=== PATIENT | female | born 1955 | race Caucasian/White ===

== ENCOUNTER 2016-05-04 10:31 | Inpatient (IN) | payer MEDICARE, MEDICAID ==
[2016-05-04] MEDS ORDERED: SODIUM CHLORIDE 0.9% 10 ML FLUSH FLUSH PRN (11:01)
[2016-05-04] MEDS ORDERED: METHYLPREDNISOLONE 125 MG/2 ML VIAL IV ONE (11:01)
[2016-05-04] MEDS ORDERED: Albuterol/Ipratropium Neb 3 ML NEB NEB ONE (11:01)
--- NOTE | 2016-05-04 11:01 | EDPRACDOC ---
<Eve Mast - Last Filed: 05/04/16 11:55> - General Information Information Source: Patient Mode Of Arrival: Car - History of Present Illness Onset: TODAY HPI: PT REPORTS NON-PROD COUGH, WHEEZING, SOBR TODAY, HX OF ASTHMA, CONTINUES TO SMOKE, NO FEVER OR CHEST PAIN, NO N/V/D. Shortness of Breath: Severe Relevant History: Reports: Asthma Cough: Reports: Non-productive Rhinorrhea: Denies: Clear, Bloody, Brown, Green, Purulent, None, O Ear Symptoms: Reports: None SOB Worsens with: Reports: Exertion SOB Improves with: Reports: Nothing Recently treated infections:: Denies: Otitis media, Pneumonia, URI Associated Signs and symptoms: Reports: Cough, Nasal Symptoms. Denies: Earache , Fever, Headache, Sore Throat, Nausea, Vomiting, Diarrhea, Myalgia, Rash, Pain with head movement, AMS <Tino Wilkerson - Last Filed: 05/04/16 12:09> - General Information Chief Complaint: Dyspnea/Resp distress Stated Complaint: DIFFICULTY BREATHING Time Seen by Provider: 05/04/16 10:52 Home Medications: Home Medications Esomeprazole Mag Trihydrate [Nexium] 40 mg PO DAILY 01/23/13 Lisinopril [Prinivil] 40 mg PO DAILY 01/23/13 Promethazine [Phenergan] 25 mg PO Q6H PRN 01/23/13 Amlodipine [Norvasc] 5 mg PO DAILY 05/22/15 Albuterol Sulfate [Proair Hfa] 2 puff INH Q4-6H PRN 11/05/15 L.acidoph & Paracasei,B.lactis [Probiotic] 1 each PO .7DAYS BEFORE SX 11/05/15 Lactulose 10 gm PO DAILY PRN 11/05/15 Methylcellulose [Fiber] 500 mg PO .7 DAYS BEFORE SX 11/05/15 Budesonide/Formoterol Fumarate [Symbicort 80-4.5 Mcg Inhaler] 2 puff INH BID Fluoxetine HCl 20 mg PO DAILY 11/25/15 Oxycodone HCl [Oxycodone Immediate Release] 10 mg PO Q8H PRN 11/25/15 Simvastatin [Zocor] 20 mg PO DAILY 11/25/15 Aspirin (OrangeEnteric Coated) [Ecotrin] 325 mg PO BID #60 tab 11/28/15 Celecoxib [Celebrex] 200 mg PO QDPC #11 capsule 11/28/15 Oxycodone Immediate Release [Oxycodone Immediate Release (OxyIR)] 5 mg PO Q4H PRN #40 tab 11/28/15 Allergies/Adverse Reactions: Allergies Allergy/AdvReac Type Severity Reaction Status Date / Time No Known Allergies Allergy Verified 05/04/16 10:41 ED Past Medical History - History Reviewed Yes Nurses notes reviewed and agree except as marked - Patient Medical History Cardiac History: Reports: Hypertension Respiratory History: Reports: COPD (CHRONIC BRONCHITIS), Chronic Bronchitis GI/ History: Reports: Gastroesophageal Reflux, Diverticulosis Musculoskeletal History: Reports: Arthritis Psychological History: Reports: Depression, Anxiety. Denies: Substance Use Disorder Systemic History: Denies: Cancer Surgical History: Reports: Hysterectomy - Family Medical History Reports: Hypertension (FATHER), Cancer (MOTHER LUNG CA), Cardiac Disorders ( FATHER). Denies: Diabetes, Stroke - Social Medical History Smoking Status: Heavy tobacco smoker (5 or more cigarettes/day or daily pipe/ cigar) Social History: Denies: Substance Use Disorder ETOH: None Substance Abuse: None <Tino Wilkerson - Last Filed: 05/04/16 12:09> EDM Review of Systems - Review of Systems Constitutional: negative: Chills, Fever Eyes: negative: Blurred Vision, Double Vision Ears: negative: Drainage Throat: negative: Pain Nose: Congestion. negative: Discharge Respiratory: Cough, Shortness of Breath, Wheezing Cardiovascular: negative: Chest Pain, Palpitations Gastrointestinal: negative: Diarrhea, Nausea, Pain, Vomiting Genitourinary: negative: Dysuria, Frequency Neurological: negative: Dizziness, Headache, Numbness, Weakness Musculoskeletal: No Symptoms Reported Integumentary: No Symptoms Reported <Tino Wilkerson - Last Filed: 05/04/16 12:09> - Physical Exam Last recorded Vital Signs: Last Vital Signs Temp 99.3 F 05/04/16 10:55 Pulse 92 05/04/16 11:25 Resp 30 H 05/04/16 11:25 BP 136/65 05/04/16 11:25 Pulse Ox 93 05/04/16 11:25 Oxygen Pulse Oxygen Saturation 93 O2 Device Nasal Cannula Oxygen Flow Rate 2 Fraction of Inspired Oxygen ( FIO2) <Eve Mast - Last Filed: 05/04/16 11:55> - Physical Exam Constitutional: Alert (Awake), No apparent distress Oriented to: Time, Person, Place Last recorded Vital Signs: Last Vital Signs Temp 99.3 F 05/04/16 10:40 Pulse 105 05/04/16 10:40 Resp 42 H 05/04/16 10:40 BP 169/91 05/04/16 10:40 Pulse Ox 90 L 05/04/16 10:40 Oxygen Pulse Oxygen Saturation 90 O2 Device Oxygen Flow Rate Fraction of Inspired Oxygen ( FIO2) - HEENT Head: Normal ( normocephalic) Eye Exam: Normal (PERRL, EOMI, Sclera white) Oropharynx: Normal (Pharynx:Moist without exudate,Gums-no swelling) Tympanic Membrane: Normal ENT EAC: Normal TMJ: Normal Nose: No Symptoms Reported (septum midline) Neck: Normal (FROM, trachea at midline) - Respiratory/Cardiovascular Respiratory: Accessory Muscle Use, Wheezes Cardiovascular: Normal (RRR without murmur, gallop or rub) - GI Auscultation: Normal (NABS) Palpation: Normal (Soft,No rebound or guarding, non distended) Tenderness: Non tender Christinason's Sign: Negative - Musculoskeletal Back: Normal (Non-Tender) Extremities: Normal (Normal tone, Pulses 2+ No cyanosis or edema, FROM) - Integumentary Skin: Normal, Warm, Dry Lymphatics: Normal (no adenopathy) - Neurologic Memory Impaired: Normal Motor Function: Normal (Normal tone, Pulses 2+ No cyanosis or edema, FROM) Cranial Nerve: Normal (CN II-X11 intact sensation, strength 5/5) Cerebellar: Normal Mood Description: Normal Perception: Normal <Tino Wilkerson - Last Filed: 05/04/16 12:09> ED SOB MDM - Results Result Diagrams: 05/04/16 11:00 05/04/16 11:00 Results: WBC 12.3 xk/uL (3.8-10.8) H 05/04/16 11:00 RBC 4.37 xM/uL (4.20-5.40) 05/04/16 11:00 Hgb 10.1 g/dL (12.0-16.0) L 05/04/16 11:00 Hct 31.4 % (36-47) L 05/04/16 11:00 MCV 72 fL (81-99) L 05/04/16 11:00 MCH 23.1 pg (27-32) L 05/04/16 11:00 MCHC 32.3 g/dl (33-36) L 05/04/16 11:00 RDW 18.9 % (11.5-14.5) H 05/04/16 11:00 Plt Count 424 xk/uL (130-400) H 05/04/16 11:00 MPV 8.1 fL (7.4-10.4) 05/04/16 11:00 Neut % (Auto) Cancelled 05/04/16 11:00 Lymph % (Auto) Cancelled 05/04/16 11:00 [place] % (Auto) Cancelled 05/04/16 11:00 Eos % (Auto) Cancelled 05/04/16 11:00 Baso % (Auto) Cancelled 05/04/16 11:00 Absolute Neuts (auto) Cancelled 05/04/16 11:00 Absolute Lymphs (auto) Cancelled 05/04/16 11:00 Seg Neuts % (Manual) 84 % (45-76) H 05/04/16 11:00 Band Neutrophils % 1 % (0-5) 05/04/16 11:00 Lymphocytes % (Manual) 15 % (17-44) L 05/04/16 11:00 Absolute Neutrophils 10.46 xk/uL (1.7-8.2) H 05/04/16 11:00 Absolute Lymphocytes 1.85 xk/uL (0.65-4.75) 05/04/16 11:00 Platelet Estimate Norm (NORMAL) 05/04/16 11:00 RBC Morphology 1+ hypo 1+ micro 1+ polychrom 05/04/16 11:00 RBC Morphology 1+ hypo 1+ micro 1+ polychrom 05/04/16 11:00 RBC Morphology 1+ hypo 1+ micro 1+ polychrom 05/04/16 11:00 PT 11.0 SEC (9.2-11.2) 05/04/16 11:00 INR 1.1 05/04/16 11:00 APTT 25.6 SEC (22-35) 05/04/16 11:00 Puncture Site Left radial 05/04/16 11:00 pH 7.480 pH UNITS (7.35-7.45) H 05/04/16 11:00 pCO2 36.0 mmHg (35-45) 05/04/16 11:00 pO2 57.0 mmHg (80-100) L 05/04/16 11:00 HCO3 26.8 MMOL/L (22-26) H 05/04/16 11:00 Total CO2 27.9 MMOL/L (23-27) H 05/04/16 11:00 Base Excess 3.4 (+/- 2) H 05/04/16 11:00 FiO2 % 21% 05/04/16 11:00 Specimen Drawn By Stana 05/04/16 11:00 Sodium 139 mEq/L (137-146) 05/04/16 11:00 Potassium 3.2 mEq/L (3.5-5.1) L 05/04/16 11:00 Chloride 101 mEq/L (98-107) 05/04/16 11:00 Carbon Dioxide 26 mMOL/L (22-33) 05/04/16 11:00 Anion Gap 15 mEq/L (8-16) 05/04/16 11:00 BUN 8 MG/DL (7-17) 05/04/16 11:00 Creatinine 0.70 MG/DL (0.52-1.04) 05/04/16 11:00 Estimated GFR (MDRD) > 60 mL/min (>=60) 05/04/16 11:00 Glucose 120 MG/DL (70-99) H 05/04/16 11:00 Calculated Osmolality 267 MOs/Kg (270-290) L 05/04/16 11:00 Calcium 8.1 MG/DL (8.4-10.2) L 05/04/16 11:00 Corrected Calcium 8.3 MG/DL (8.4-10.2) L 05/04/16 11:00 Total Bilirubin 0.5 MG/DL (0.2-1.3) 05/04/16 11:00 AST 25 IU/L (14-36) 05/04/16 11:00 ALT 25 IU/L (9-52) 05/04/16 11:00 Alkaline Phosphatase 124 IU/L (55-165) 05/04/16 11:00 Troponin I < 0.01 ng/mL (<.04) 05/04/16 11:00 Wha-C-Vqzlsbxbgne Pept 911 pg/mL (0-900) H 05/04/16 11:00 Total Protein 7.6 G/DL (6.3-8.2) 05/04/16 11:00 Albumin 3.8 G/DL (3.5-5.0) 05/04/16 11:00 Lab Results 05/04/16 05/04/16 05/04/16 11:00 11:00 11:00 WBC 12.3 H RBC 4.37 Hgb 10.1 L Hct 31.4 L MCV 72 L MCH 23.1 L MCHC 32.3 L RDW 18.9 H Plt Count 424 H MPV 8.1 Neut % (Auto) Cancelled Lymph % (Auto) Cancelled [place] % (Auto) Cancelled Eos % (Auto) Cancelled Baso % (Auto) Cancelled Absolute Neuts (auto) Cancelled Absolute Lymphs (auto) Cancelled Seg Neuts % (Manual) 84 H Band Neutrophils % 1 Lymphocytes % (Manual) 15 L Absolute Neutrophils 10.46 H Absolute Lymphocytes 1.85 Platelet Estimate Norm RBC Morphology 1+ polychrom PT 11.0 INR 1.1 APTT 25.6 Puncture Site pH pCO2 pO2 HCO3 Total CO2 Base Excess FiO2 % Specimen Drawn By Sodium 139 Potassium 3.2 L Chloride 101 Carbon Dioxide 26 Anion Gap 15 BUN 8 Creatinine 0.70 Estimated GFR (MDRD) > 60 Glucose 120 H Calculated Osmolality 267 L Calcium 8.1 L Corrected Calcium 8.3 L Total Bilirubin 0.5 AST 25 ALT 25 Alkaline Phosphatase 124 Troponin I < 0.01 Cck-O-Frdimoohsgu Pept 911 H Total Protein 7.6 Albumin 3.8 05/04/16 11:00 WBC RBC Hgb Hct MCV MCH MCHC RDW Plt Count MPV Neut % (Auto) Lymph % (Auto) [place] % (Auto) Eos % (Auto) Baso % (Auto) Absolute Neuts (auto) Absolute Lymphs (auto) Seg Neuts % (Manual) Band Neutrophils % Lymphocytes % (Manual) Absolute Neutrophils Absolute Lymphocytes Platelet Estimate RBC Morphology PT INR APTT Puncture Site Left radial pH 7.480 H pCO2 36.0 pO2 57.0 L HCO3 26.8 H Total CO2 27.9 H Base Excess 3.4 H FiO2 % 21% Specimen Drawn By Stana Sodium Potassium Chloride Carbon Dioxide Anion Gap BUN Creatinine Estimated GFR (MDRD) Glucose Calculated Osmolality Calcium Corrected Calcium Total Bilirubin AST ALT Alkaline Phosphatase Troponin I Mwr-Z-Hjbcemtidno Pept Total Protein Albumin <Eve Mast - Last Filed: 05/04/16 11:55> - Differential Diagnosis Differential Diagnosis: Heart Failure, Pnuemonia, Respiratory Failure - Re-evaluation Re-evaluation 1 Re-evaluation Time: 11:50 (BREATHING SOME BETTER, CONT TO WHEEZE, DISCUSSED WITH DR MAST, SHE WILL DISCUSS WITH HOSPTIALIST) - Results Result Diagrams: 05/04/16 11:00 05/04/16 11:00 Results: 05/04/16 11:49 Laboratory Results - last 24 hr 05/04/16 05/04/16 05/04/16 11:00 11:00 11:00 WBC 12.3 H RBC 4.37 Hgb 10.1 L Hct 31.4 L MCV 72 L MCH 23.1 L MCHC 32.3 L RDW 18.9 H Plt Count 424 H MPV 8.1 Neut % (Auto) Cancelled Lymph % (Auto) Cancelled [place] % (Auto) Cancelled Eos % (Auto) Cancelled Baso % (Auto) Cancelled Absolute Neuts (auto) Cancelled Absolute Lymphs (auto) Cancelled Seg Neuts % (Manual) 84 H Band Neutrophils % 1 Lymphocytes % (Manual) 15 L Absolute Neutrophils 10.46 H Absolute Lymphocytes 1.85 Platelet Estimate Norm RBC Morphology 1+ polychrom PT INR APTT Puncture Site Left radial pH 7.480 H pCO2 36.0 pO2 57.0 L HCO3 26.8 H Total CO2 27.9 H Base Excess 3.4 H FiO2 % 21% Specimen Drawn By Stana Sodium 139 Potassium 3.2 L Chloride 101 Carbon Dioxide 26 Anion Gap 15 BUN 8 Creatinine 0.70 Estimated GFR (MDRD) > 60 Glucose 120 H Calculated Osmolality 267 L Calcium 8.1 L Corrected Calcium 8.3 L Total Bilirubin 0.5 AST 25 ALT 25 Alkaline Phosphatase 124 Troponin I < 0.01 Aee-B-Gmckbmhcvkp Pept 911 H Total Protein 7.6 Albumin 3.8 05/04/16 11:00 WBC RBC Hgb Hct MCV MCH MCHC RDW Plt Count MPV Neut % (Auto) Lymph % (Auto) [place] % (Auto) Eos % (Auto) Baso % (Auto) Absolute Neuts (auto) Absolute Lymphs (auto) Seg Neuts % (Manual) Band Neutrophils % Lymphocytes % (Manual) Absolute Neutrophils Absolute Lymphocytes Platelet Estimate RBC Morphology PT 11.0 INR 1.1 APTT 25.6 Puncture Site pH pCO2 pO2 HCO3 Total CO2 Base Excess FiO2 % Specimen Drawn By Sodium Potassium Chloride Carbon Dioxide Anion Gap BUN Creatinine Estimated GFR (MDRD) Glucose Calculated Osmolality Calcium Corrected Calcium Total Bilirubin AST ALT Alkaline Phosphatase Troponin I Irz-U-Jheiiuevxkm Pept Total Protein Albumin - EKG EKG #1 EKG Time: 11:13 -: Yes EKG interpreted by me Rate: bpm: 100 Saxe: Normal Rhythm: NSR Block: None Hypertrophy: None ST: Nonsp Comparison: 10/30/15 (NO CHANGE) - Diagnostic Imaging CXR Image interpreted by: Radiologist Diagnostic Imaging Comments: PORTABLE CHEST 1 VIEW COMPARISON: Prior chest x-ray 02/17/2015 FINDINGS: Stable cardiac and mediastinal contours. Atherosclerotic calcifications again noted in the transverse aorta. Bronchitic change and interstitial prominence similar compared to prior. No overt pulmonary edema, new focal consolidation, pleural effusion or pneumothorax. Perhaps slightly increased left basilar opacity which is nonspecific. No acute osseous abnormality. IMPRESSION: 1. Left retrocardiac opacity may reflect atelectasis or infiltrate. Atelectasis is favored. 2. Otherwise, stable chest x-ray without evidence of acute cardiopulmonary process. 3. Aortic atherosclerosis. <Tino Wilkerson - Last Filed: 05/04/16 12:09> - Departure Yes I personally saw and evaluated the patient. Disposition: Admit IP To This Hospital Education/Counseling Given To: Patient Education/Counseling Given Regarding: Diagnosis, Treatment Decision to Admit Time: 11:55 Decision to admit date: 05/04/16 Decision to admit: from ED - Physician Consulted Hospitalist Provider Called: Anderson Byrne <Eve Mast - Last Filed: 05/04/16 11:55> <Tino Wilkerson - Last Filed: 05/04/16 12:09> - Departure Condition: Fair Final Diagnosis: LLL pneumonia, Acute respiratory failure with hypoxia, Tobacco abuse Referrals: Marti Rojo PA [Primary Care Provider] - One Week
[2016-05-04 11:09] LABS: ALLEN'S TEST PASS; BEb 3.4 (+/- 2); TCO2 27.9 MMOL/L (23-27)
[2016-05-04 11:12] LABS: MPV 8.1 fL (7.4-10.4)
[2016-05-04 11:14] LABS: ABG Draw Site Left Radial
[2016-05-04 11:22] LABS: BLOOD UREA NITROGEN 8 MG/DL (7-17); CALC CORRECTED 8.3 MG/DL (8.4-10.2); CALCIUM 8.1 MG/DL (8.4-10.2); CALCULATED OSMOLALITY 267 MOs/Kg (270-290); CHLORIDE 101 mEq/L (98-107); GLUCOSE 120 MG/DL (70-99); SODIUM LEVEL 139 mEq/L (137-146); TOTAL PROTEIN 7.6 G/DL (6.3-8.2)
[2016-05-04 11:29] LABS: PARTIAL THROMB. TIME 25.6 SEC (22-35); PT-INR 1.1
[2016-05-04 11:41] LABS: SEG NEUTROPHIL 84 % (45-76)
--- NOTE | 2016-05-04 11:48 | DIRPT ---
CLINICAL DATA: 61-year-old female with shortness of breath, cough and wheezing EXAM: PORTABLE CHEST 1 VIEW COMPARISON: Prior chest x-ray 02/17/2015 FINDINGS: Stable cardiac and mediastinal contours. Atherosclerotic calcifications again noted in the transverse aorta. Bronchitic change and interstitial prominence similar compared to prior. No overt pulmonary edema, new focal consolidation, pleural effusion or pneumothorax. Perhaps slightly increased left basilar opacity which is nonspecific. No acute osseous abnormality. IMPRESSION: 1. Left retrocardiac opacity may reflect atelectasis or infiltrate. Atelectasis is favored. 2. Otherwise, stable chest x-ray without evidence of acute cardiopulmonary process. 3. Aortic atherosclerosis. Electronically Signed By: Christopher Adair M.D. On: 05/04/2016 11:45
[2016-05-04] MEDS ORDERED: Levofloxacin 750 mg/150 ml D5W 750 MG/150 ML RTU IV ONE (12:00)
[2016-05-04] MEDS ORDERED: GLUCAGON 1 MG VIAL SQ PRN (12:50)
[2016-05-04] MEDS ORDERED: GLUCOSE (ORAL GEL) 15 GM TUBE PO PRN (12:50)
[2016-05-04] MEDS ORDERED: SODIUM CHLORIDE 0.9% 3 ML FLUSH FLUSH PRN (12:50)
[2016-05-04] MEDS ORDERED: Aluminum;Magnesium;Simethicone 30 ML UDC PO PRN (12:50)
[2016-05-04] MEDS ORDERED: DEXTROSE 25 GM/50 ML PFS IV PRN (12:50)
[2016-05-04] MEDS ORDERED: MAGNESIUM HYDROXIDE 30 ML BOTTLE PO PRN (12:50)
[2016-05-04] MEDS ORDERED: ONDANSETRON HCL 4 MG/2 ML VIAL IV PRN (12:50)
[2016-05-04] MEDS ORDERED: ACETAMINOPHEN 325 MG/TAB TABLET PO ONE (12:52)
[2016-05-04] MEDS ORDERED: TUSSIONEX 5 ML ORAL SYRINGE PO ONE (12:58)
--- NOTE | 2016-05-04 13:00 | HISTPHYS ---
- Chief Complaint 61-year-old female presents emergency department with complaints of shortness of breath and cough present for several days. - History of Present Illness 61-year-old female history of multiple orthopedic procedures presents the emergency department today hypoxemic short of breath and with cough. She is unable to provide much history as she has a dysarthria. Evaluation in the Emergency Department revealed acute respiratory failure with hypoxemia, left lower lobe pneumonia, wheezing, a microcytic anemia, and tobacco abuse. Patient is unable to provide any useful history and her aide states that she is there to help her but is unable to provide any is additional history. Given findings in the emergency department patient was referred to me for further evaluation and management. Patient does complain of whitish sputum production. - Medical History Cardiac History: Reports: Hypertension Respiratory History: Reports: COPD (CHRONIC BRONCHITIS), Chronic Bronchitis GI/ History: Reports: Gastroesophageal Reflux, Diverticulosis Musculoskeletal History: Reports: Arthritis Systemic History: Denies: Cancer Psychological History: Reports: Depression, Anxiety. Denies: Substance Use Disorder - Surgical History Reports: Hysterectomy - Medictions/Allergies Allergies No Known Allergies Allergy (Verified 05/04/16 10:41) ENTERED FROM MED ORDERS Current Medication List: Reviewed Home Medications Esomeprazole Mag Trihydrate [Nexium] 40 mg PO DAILY 01/23/13 Amlodipine [Norvasc] 5 mg PO DAILY 05/22/15 Albuterol Sulfate [Proair Hfa] 2 puff INH Q4-6H PRN 11/05/15 Budesonide/Formoterol Fumarate [Symbicort 80-4.5 Mcg Inhaler] 2 puff INH BID Fluoxetine HCl 20 mg PO DAILY 11/25/15 Simvastatin [Zocor] 20 mg PO DAILY 11/25/15 Hydrocodone Bit/Acetaminophen [[place] 5-325 Tablet] 1 tab PO BID 05/04/16 Hydroxyzine Pamoate [Vistaril] 25 mg PO QID 05/04/16 Meloxicam [Mobic] 7.5 mg PO DAILY 05/04/16 Metformin HCl 500 mg PO DAILY 05/04/16 Trazodone HCl [Desyrel] 50 mg PO QHS 05/04/16 Zolpidem Tartrate 5 mg PO HS PRN 05/04/16 - Family History Reports: Hypertension (FATHER), Cancer (MOTHER LUNG CA), Cardiac Disorders ( FATHER). Denies: Diabetes, Stroke - Social History Travel Outside of [place] in the Last 3 Months?: No Lives: Alone Smoking Status: Heavy tobacco smoker (5 or more cigarettes/day or daily pipe/ cigar) Social History: Denies: Alcohol Use, Substance Use Disorder - Review of Systems Yes Review of systems cannot be obtained due to the patient's medical condition - Physical Exam Vital Signs: Initial Vitals Temperature 99.3 F 05/04/16 10:40 Pulse Rate 105 05/04/16 10:40 Respiratory Rate 42 H 05/04/16 10:40 Blood Pressure 169/91 05/04/16 10:40 Pulse Oxygen Saturation 90 L 05/04/16 10:40 Constitutional: Alert, Confused, Well nourished Oriented to: Time, Person, Place - HEENT Head: Normal (normocephalic, atraumatic.), Other (No cervical lymphadenopathy. No supraclavicular lymphadenopathy. Neck: No palpable mass, supple , trachea midline.) Eye: Normal (pupils equal, reactive to light, and round; EOMI, Sclera white) Oropharynx: Normal (Pharynx: Moist without exudate,Gums-no swelling, No oropharyngeal lesions or erythema, Mucous membranes are dry.) Nose: No Symptoms Reported (septum midline, Nares patent, without discharge or bleeding.) Respiratory: Normal - CTA (Clear to auscultation bilaterally. No wheezing, rales , rhonchi. Chest wall movements are symmetric. No use of accessory muscles to breathe.) Cardiovascular: Normal (RRR , Normal S1, S2. No murmurs, rubs, or gallops. PMI non-displaced. Carotids: no carotid bruits. No bradycardia or tachycardia. DP pulses 2+ bilaterally.) - GI Auscultation: Normal (normal active sounds) Palpation: Normal (Soft,non distended,nontender. No hepatosplenomegaly.) Tenderness: Non tender (No rebound or guarding) Christianson's Sign: Negative - Musculoskeletal Back: Normal (Non-Tender) Extremities: Normal (Normal tone, DP pulses 2+ bilaterally, No cyanosis or edema bilaterally, FROM bilaterally.) - Integumentary Skin: Normal (Clean, dry, and intact. No rashes. No lesions.) Lymphatics: Normal (No cervical lymphadenopathy. No supraclavicular lymphadenopathy.) - Neurologic Motor Function: Normal (Motor 5/5 throughout.Normal tone, Pulses 2+ No cyanosis or edema, FROM) Cranial Nerve: Normal (CN II-XII intact sensation, strength 5/5) Cerebellar: Normal (Babinski: toes downgoing bilaterally. Intact Finger to nose. Sensory grossly intact to light touch. Intact rapid alternating movements bilaterally. No pronator drift.) Mood Description: Normal (Fully oriented. Normal and appropriate affect.) - Focused CV Perfusion Exam Vital Signs: Last Vital Signs Temp 99.3 F 05/04/16 10:55 Pulse 95 05/04/16 11:54 Resp 30 H 05/04/16 11:54 BP 145/107 H 05/04/16 11:54 Pulse Ox 93 05/04/16 11:54 - Lab Results Laboratory Results - last 24 hr 05/04/16 05/04/16 05/04/16 11:00 11:00 11:00 WBC 12.3 H RBC 4.37 Hgb 10.1 L Hct 31.4 L MCV 72 L MCH 23.1 L MCHC 32.3 L RDW 18.9 H Plt Count 424 H MPV 8.1 Neut % (Auto) Cancelled Lymph % (Auto) Cancelled [place] % (Auto) Cancelled Eos % (Auto) Cancelled Baso % (Auto) Cancelled Absolute Neuts (auto) Cancelled Absolute Lymphs (auto) Cancelled Seg Neuts % (Manual) 84 H Band Neutrophils % 1 Lymphocytes % (Manual) 15 L Absolute Neutrophils 10.46 H Absolute Lymphocytes 1.85 Platelet Estimate Norm RBC Morphology 1+ polychrom PT INR APTT Puncture Site Left radial pH 7.480 H pCO2 36.0 pO2 57.0 L HCO3 26.8 H Total CO2 27.9 H Base Excess 3.4 H FiO2 % 21% Specimen Drawn By Stana Sodium 139 Potassium 3.2 L Chloride 101 Carbon Dioxide 26 Anion Gap 15 BUN 8 Creatinine 0.70 Estimated GFR (MDRD) > 60 Glucose 120 H Calculated Osmolality 267 L Lactic Acid Calcium 8.1 L Corrected Calcium 8.3 L Total Bilirubin 0.5 AST 25 ALT 25 Alkaline Phosphatase 124 Troponin I < 0.01 Cbs-G-Rtfhzkudxnu Pept 911 H Total Protein 7.6 Albumin 3.8 05/04/16 05/04/16 11:00 11:00 WBC RBC Hgb Hct MCV MCH MCHC RDW Plt Count MPV Neut % (Auto) Lymph % (Auto) [place] % (Auto) Eos % (Auto) Baso % (Auto) Absolute Neuts (auto) Absolute Lymphs (auto) Seg Neuts % (Manual) Band Neutrophils % Lymphocytes % (Manual) Absolute Neutrophils Absolute Lymphocytes Platelet Estimate RBC Morphology PT 11.0 INR 1.1 APTT 25.6 Puncture Site pH pCO2 pO2 HCO3 Total CO2 Base Excess FiO2 % Specimen Drawn By Sodium Potassium Chloride Carbon Dioxide Anion Gap BUN Creatinine Estimated GFR (MDRD) Glucose Calculated Osmolality Lactic Acid 1.5 Calcium Corrected Calcium Total Bilirubin AST ALT Alkaline Phosphatase Troponin I Mgj-F-Samgoezrqkz Pept Total Protein Albumin - Diagnostic Findings PORTABLE CHEST 1 VIEW COMPARISON: Prior chest x-ray 02/17/2015 FINDINGS: Stable cardiac and mediastinal contours. Atherosclerotic calcifications again noted in the transverse aorta. Bronchitic change and interstitial prominence similar compared to prior. No overt pulmonary edema, new focal consolidation, pleural effusion or pneumothorax. Perhaps slightly increased left basilar opacity which is nonspecific. No acute osseous abnormality. IMPRESSION: 1. Left retrocardiac opacity may reflect atelectasis or infiltrate. Atelectasis is favored. 2. Otherwise, stable chest x-ray without evidence of acute cardiopulmonary process. 3. Aortic atherosclerosis. Electronically Signed By: Christopher Adair M.D. On: 05/04/2016 11:45 - Assessment (1) Acute respiratory failure with hypoxia J96.01 - ACUTE RESPIRATORY FAILURE WITH HYPOXIA Acute Present on Admission: Yes Continue supplemental oxygen wean as tolerated. (2) Acute exacerbation of chronic obstructive pulmonary disease (COPD) J44.1 - CHRONIC OBSTRUCTIVE PULMONARY DISEASE W (ACUTE) EXACERBATION Acute Present on Admission: Yes Patient will require steroids nebs and continued oxygen treatment. (3) LLL pneumonia J18.1 - LOBAR PNEUMONIA, UNSPECIFIED ORGANISM Acute Present on Admission: Yes Qualifiers: Pneumonia type: due to unspecified organism Qualified Code(s): J18.1 - Lobar pneumonia, unspecified organism Continue IV antibiotics with Rocephin and azithromycin. (4) Hypoxemia R09.02 - HYPOXEMIA Acute (5) Hypokalemia E87.6 - HYPOKALEMIA Acute Present on Admission: Yes Replete as tolerated. (6) Microcytic anemia D50.9 - IRON DEFICIENCY ANEMIA, UNSPECIFIED Acute Present on Admission: Yes Check iron studies and stool Hemoccult. (7) Tobacco abuse Z72.0 - TOBACCO USE Acute Present on Admission: Yes Patient continues to be an avid smoker will provide nicotine patch. (8) Hypertension I10 - ESSENTIAL (PRIMARY) HYPERTENSION Acute Qualifiers: Hypertension type: essential hypertension Qualified Code(s): I10 - Essential (primary) hypertension Continue home medications. - Plan Admit IV antibiotics, IV steroids oxygen supplementation. Case Care Discussed with: Patient Total Time: 55 minutes. Critical Care: No [place] Time (>50% in counseling/coordination): No
[2016-05-04] MEDS: BuPROPion 150 MG SR TAB PO SCH ×2 (14:23→21:36)
[2016-05-04] MEDS: NICOTINE 21 MG PATCH TOP SCH (14:30)
[2016-05-04] MEDS: NS/KCl 20 mEq 1,000 ML IV SCH (14:30)
[2016-05-04] MEDS ORDERED: NS 250 ML IV ONE (14:32)
[2016-05-04] MEDS: AZITHROMYCIN 500 MG in D5W 250 ML IV SCH (14:33)
[2016-05-04] MEDS ORDERED: Vaccine Screening Complete SCH (15:00)
[2016-05-04] MEDS: Albuterol/Ipratropium Neb 3 ML NEB NEB SCH ×2 (15:22→20:12)
[2016-05-04] MEDS: ALBUTEROL 0.083% 3 ML NEB NEB SCH ×2 (15:34→20:13)
[2016-05-04] MEDS: HydrOXYzine PAMOATE 25 MG/CAP CAP PO SCH ×3 (16:11→21:35)
[2016-05-04] MEDS: CEFTRIAXONE 1 GM in D5W 100 ML IV SCH (16:14)
[2016-05-04] MEDS: SODIUM CHLORIDE 0.9% 3 ML FLUSH FLUSH SCH (16:14)
[2016-05-04] MEDS: REGULAR INSULIN 100 UNITS/ML - 3 ML VIAL SQ SCH ×2 (17:57→21:37)
[2016-05-04] MEDS: ENOXAPARIN 40 MG/0.4 ML PFS SQ SCH (17:58)
[2016-05-04] MEDS: METHYLPREDNISOLONE 125 MG/2 ML VIAL IV SCH ×2 (17:58→23:03)
[2016-05-04] MEDS: BUDESONIDE 0.5 MG NEB NEB SCH (20:13)
[2016-05-04] MEDS ORDERED: Non-Formulary Medication ITEM (Budesonide/Formoterol Fumarate [Symbicort 80-4.5 Mcg Inha INH SCH (21:00)
[2016-05-04] MEDS: BENZONATATE 100 MG PERLES PO PRN (21:34)
[2016-05-04] MEDS: HYDROCODONE 5 MG/ACETAMIN 325 MG TAB PO SCH ×2 (21:36→23:01)
[2016-05-04] MEDS ORDERED: HYDROCODONE 10 MG/ACETAMIN 325 MG TAB PO ONE (22:00)
[2016-05-04] MEDS: ALBUTEROL 0.083% 3 ML NEB NEB PRN (22:33)
[2016-05-05] MEDS: Albuterol/Ipratropium Neb 3 ML NEB NEB SCH ×4 (01:58→19:31)
[2016-05-05] MEDS: NS/KCl 20 mEq 1,000 ML IV SCH ×3 (02:56→12:43)
[2016-05-05 04:28] LABS: ALLEN'S TEST PASS; BEb 0.7 (+/- 2); TCO2 26.6 MMOL/L (23-27)
[2016-05-05 04:29] LABS: ABG Draw Site Right Radial; ABG Draw Tech BKL
[2016-05-05] MEDS ORDERED: HYDROCODONE 5 MG/ACETAMIN 325 MG TAB PO SCH (06:00)
[2016-05-05] MEDS: SODIUM CHLORIDE 0.9% 3 ML FLUSH FLUSH SCH ×2 (06:07→17:48)
[2016-05-05] MEDS: MetFORMIN 500 MG IMMED RELEASE TAB PO SCH (06:22)
[2016-05-05] MEDS: REGULAR INSULIN 100 UNITS/ML - 3 ML VIAL SQ SCH ×4 (06:22→20:07)
[2016-05-05] MEDS: PANTOPRAZOLE 40 MG TAB PO SCH (06:22)
[2016-05-05] MEDS: METHYLPREDNISOLONE 125 MG/2 ML VIAL IV SCH ×4 (06:22→23:51)
[2016-05-05] MEDS: ALBUTEROL 0.083% 3 ML NEB NEB PRN ×2 (06:25→23:06)
[2016-05-05 07:39] LABS: MPV 8.5 fL (7.4-10.4)
[2016-05-05] MEDS: BUDESONIDE 0.5 MG NEB NEB SCH ×2 (07:45→19:36)
[2016-05-05 07:58] LABS: BLOOD UREA NITROGEN 10 MG/DL (7-17); CALC CORRECTED 9.1 MG/DL (8.4-10.2); CALCIUM 8.9 MG/DL (8.4-10.2); CALCULATED OSMOLALITY 270 MOs/Kg (270-290); CHLORIDE 104 mEq/L (98-107); GLUCOSE 134 MG/DL (70-99); SODIUM LEVEL 140 mEq/L (137-146); TOTAL PROTEIN 7.3 G/DL (6.3-8.2)
[2016-05-05] MEDS: BENZONATATE 100 MG PERLES PO PRN (07:59)
[2016-05-05] MEDS: HydrOXYzine PAMOATE 25 MG/CAP CAP PO SCH ×4 (07:59→20:07)
[2016-05-05] MEDS: SIMVASTATIN 20 MG TAB PO SCH (07:59)
[2016-05-05] MEDS: FLUOXETINE 20 MG CAP PO SCH (08:00)
[2016-05-05] MEDS: HYDROCODONE 5 MG/ACETAMIN 325 MG TAB PO SCH (08:00)
[2016-05-05] MEDS: MELOXICAM 7.5 MG TAB PO SCH (08:00)
[2016-05-05] MEDS: AMLODIPINE 5 MG TAB PO SCH (08:00)
[2016-05-05 08:39] LABS: SEG NEUTROPHIL 89 % (45-76)
[2016-05-05 08:52] LABS: IRON(SERUM) < 10.0 ug/dL (37-170)
[2016-05-05] MEDS ORDERED: Non-Formulary Medication ITEM (Esomeprazole Mag Trihydrate [Nexium] 40 MG) PO SCH (09:00)
[2016-05-05] MEDS: BuPROPion 150 MG SR TAB PO SCH (09:08)
--- NOTE | 2016-05-05 10:29 | GENMEDPROG ---
Chief Complaint: Patient still wheezing does not feel much better at all. Subjective Note: 61-year-old female admitted to our facility yesterday with hypoxemia and a bacterial pneumonia. She continues to have significant wheezing despite steroid therapy. She has smoked about a pack a cigarettes daily up until the day of admission Notes Reviewed: Yes Events from last night noted and discussed with Clinical Staff Current Medication List: Reviewed Currently: Reports: Cough, Wheezing, SOB, Tobacco Use/Hx. Denies: Nausea and Vomiting, Abdominal Pain DVT Prophylaxis: Yes - Physical Examination Vital Signs and I&O: Last Vital Signs Temp 98 F 05/05/16 10:05 Pulse 100 05/05/16 10:05 Resp 18 05/05/16 10:05 BP 128/82 05/05/16 10:05 Pulse Ox 92 05/05/16 10:05 Oxygen Pulse Oxygen Saturation 92 O2 Device Nasal Cannula Oxygen Flow Rate 2 Fraction of Inspired Oxygen ( FIO2) Intake & Output 05/02/16 05/03/16 05/04/16 05/05/16 23:59 23:59 23:59 23:59 Intake Total 661 1569 Output Total 550 150 Balance 111 1419 Patient's weight 85.389 kg General: Alert, Oriented x3, No acute distress, Well appearing, Well nourished HEENT: Normal (Normocephalic, atraumatic;EOMI.Sclera white, Nares patent, without discharge or bleeding. No oropharyngeal lesions or erythema. Mucous membranes are dry.) Lymphatics: Normal (No cervical lymphadenopathy. No supraclavicular lymphadenopathy.) Respiratory: Diminished, Rhonchi, Wheezes Cardiovascular: Regular rate and rhythm (No bradycardia or tachycardia), Normal S1, No Gallops,Rubs/Murmurs, Normal S2, Good Pedal Pulses (DP pulses 2+ bilaterally) GI: Normal bowel sounds (normal active sounds), Soft (non-distended), Non tender , No hepatospenomegaly, No masses Extremities/Musculoskeletal: Normal pulses (DP pulses 2+ bilaterally) Skin: Warm,Dry and Intact, No rashes, No significant lesion Neurological: Strength at 5/5 X4 ext (Motor 5/5 throughout.), Normal tone, Cranial nerves 3-12 NL ( 2-12 grossly intact.) Lab/DI/Studies Reviewed: Laboratory Results - last 24 hr 05/04/16 05/04/1616 11:00 11:00 11:00 WBC 12.3 H RBC 4.37 Hgb 10.1 L Hct 31.4 L MCV 72 L MCH 23.1 L MCHC 32.3 L RDW 18.9 H Plt Count 424 H MPV 8.1 Neut % (Auto) Cancelled Lymph % (Auto) Cancelled [place] % (Auto) Cancelled Eos % (Auto) Cancelled Baso % (Auto) Cancelled Absolute Neuts (auto) Cancelled Absolute Lymphs (auto) Cancelled Seg Neuts % (Manual) 84 H Band Neutrophils % 1 Lymphocytes % (Manual) 15 L Monocytes % (Manual) Absolute Neutrophils 10.46 H Absolute Lymphocytes 1.85 Vacuolated Neuts Platelet Estimate Norm RBC Morphology 1+ polychrom PT INR APTT Puncture Site Left radial pH 7.480 H pCO2 36.0 pO2 57.0 L HCO3 26.8 H Total CO2 27.9 H Base Excess 3.4 H FiO2 % 21% Specimen Drawn By Stana Sodium 139 Potassium 3.2 L Chloride 101 Carbon Dioxide 26 Anion Gap 15 BUN 8 Creatinine 0.70 Estimated GFR (MDRD) > 60 Glucose 120 H POC Capillary Glucose Hemoglobin A1c Calculated Osmolality 267 L Lactic Acid Calcium 8.1 L Corrected Calcium 8.3 L Iron TIBC % Saturation Ferritin Total Bilirubin 0.5 AST 25 ALT 25 Alkaline Phosphatase 124 Troponin I < 0.01 Lll-V-Mgembctraat Pept 911 H Total Protein 7.6 Albumin 3.8 TSH 05/04/16 05/04/16 05/04/16 11:00 11:00 11:00 WBC RBC Hgb Hct MCV MCH MCHC RDW Plt Count MPV Neut % (Auto) Lymph % (Auto) [place] % (Auto) Eos % (Auto) Baso % (Auto) Absolute Neuts (auto) Absolute Lymphs (auto) Seg Neuts % (Manual) Band Neutrophils % Lymphocytes % (Manual) Monocytes % (Manual) Absolute Neutrophils Absolute Lymphocytes Vacuolated Neuts Platelet Estimate RBC Morphology PT 11.0 INR 1.1 APTT 25.6 Puncture Site pH pCO2 pO2 HCO3 Total CO2 Base Excess FiO2 % Specimen Drawn By Sodium Potassium Chloride Carbon Dioxide Anion Gap BUN Creatinine Estimated GFR (MDRD) Glucose POC Capillary Glucose Hemoglobin A1c 5.8 H Calculated Osmolality Lactic Acid 1.5 Calcium Corrected Calcium Iron TIBC % Saturation Ferritin Total Bilirubin AST ALT Alkaline Phosphatase Troponin I Wor-L-Qmoswzijhpn Pept Total Protein Albumin TSH 05/04/16 05/04/16 05/04/16 11:00 14:06 16:35 WBC RBC Hgb Hct MCV MCH MCHC RDW Plt Count MPV Neut % (Auto) Lymph % (Auto) [place] % (Auto) Eos % (Auto) Baso % (Auto) Absolute Neuts (auto) Absolute Lymphs (auto) Seg Neuts % (Manual) Band Neutrophils % Lymphocytes % (Manual) Monocytes % (Manual) Absolute Neutrophils Absolute Lymphocytes Vacuolated Neuts Platelet Estimate RBC Morphology PT INR APTT Puncture Site pH pCO2 pO2 HCO3 Total CO2 Base Excess FiO2 % Specimen Drawn By Sodium Potassium Chloride Carbon Dioxide Anion Gap BUN Creatinine Estimated GFR (MDRD) Glucose POC Capillary Glucose Hemoglobin A1c Calculated Osmolality Lactic Acid Calcium Corrected Calcium Iron TIBC % Saturation Ferritin Total Bilirubin AST ALT Alkaline Phosphatase Troponin I < 0.01 < 0.01 Zue-Y-Luouuvhbgnn Pept Total Protein Albumin TSH 0.48 L 05/04/16 05/04/16 05/05/16 17:56 20:04 04:25 WBC RBC Hgb Hct MCV MCH MCHC RDW Plt Count MPV Neut % (Auto) Lymph % (Auto) [place] % (Auto) Eos % (Auto) Baso % (Auto) Absolute Neuts (auto) Absolute Lymphs (auto) Seg Neuts % (Manual) Band Neutrophils % Lymphocytes % (Manual) Monocytes % (Manual) Absolute Neutrophils Absolute Lymphocytes Vacuolated Neuts Platelet Estimate RBC Morphology PT INR APTT Puncture Site Right radial pH 7.410 pCO2 40.0 pO2 90.0 HCO3 25.4 Total CO2 26.6 Base Excess 0.7 FiO2 % 2 lpm Specimen Drawn By Bkl Sodium Potassium Chloride Carbon Dioxide Anion Gap BUN Creatinine Estimated GFR (MDRD) Glucose POC Capillary Glucose 137 H 167 H Hemoglobin A1c Calculated Osmolality Lactic Acid Calcium Corrected Calcium Iron TIBC % Saturation Ferritin Total Bilirubin AST ALT Alkaline Phosphatase Troponin I Vqe-V-Hwwmxjphtge Pept Total Protein Albumin TSH 05/05/16 05/05/16 05/05/16 06:16 06:56 06:56 WBC 10.2 RBC 4.22 Hgb 9.8 L Hct 30.8 L MCV 73 L MCH 23.3 L MCHC 31.9 L RDW 19.3 H Plt Count 364 MPV 8.5 Neut % (Auto) Cancelled Lymph % (Auto) Cancelled [place] % (Auto) Cancelled Eos % (Auto) Cancelled Baso % (Auto) Cancelled Absolute Neuts (auto) Cancelled Absolute Lymphs (auto) Cancelled Seg Neuts % (Manual) 89 H Band Neutrophils % 1 Lymphocytes % (Manual) 8 L Monocytes % (Manual) 2 Absolute Neutrophils 9.18 H Absolute Lymphocytes 0.82 Vacuolated Neuts 1+ Platelet Estimate Norm RBC Morphology 1+ aniso PT INR APTT Puncture Site pH pCO2 pO2 HCO3 Total CO2 Base Excess FiO2 % Specimen Drawn By Sodium 140 Potassium 4.8 D Chloride 104 Carbon Dioxide 26 Anion Gap 15 BUN 10 Creatinine 0.80 Estimated GFR (MDRD) > 60 Glucose 134 H POC Capillary Glucose 148 H Hemoglobin A1c Calculated Osmolality 270 Lactic Acid Calcium 8.9 Corrected Calcium 9.1 Iron TIBC % Saturation Ferritin Total Bilirubin 0.4 AST 21 ALT 31 Alkaline Phosphatase 110 Troponin I Hqp-Q-Utcynayivwb Pept Total Protein 7.3 Albumin 3.8 TSH 05/05/16 06:56 WBC RBC Hgb Hct MCV MCH MCHC RDW Plt Count MPV Neut % (Auto) Lymph % (Auto) [place] % (Auto) Eos % (Auto) Baso % (Auto) Absolute Neuts (auto) Absolute Lymphs (auto) Seg Neuts % (Manual) Band Neutrophils % Lymphocytes % (Manual) Monocytes % (Manual) Absolute Neutrophils Absolute Lymphocytes Vacuolated Neuts Platelet Estimate RBC Morphology PT INR APTT Puncture Site pH pCO2 pO2 HCO3 Total CO2 Base Excess FiO2 % Specimen Drawn By Sodium Potassium Chloride Carbon Dioxide Anion Gap BUN Creatinine Estimated GFR (MDRD) Glucose POC Capillary Glucose Hemoglobin A1c Calculated Osmolality Lactic Acid Calcium Corrected Calcium Iron < 10.0 L TIBC 334 % Saturation TNP Ferritin 12.3 Total Bilirubin AST ALT Alkaline Phosphatase Troponin I Rtt-R-Wbipprlpvte Pept Total Protein Albumin TSH - Assessment (1) Acute respiratory failure with hypoxia Acute J96.01 - ACUTE RESPIRATORY FAILURE WITH HYPOXIA Comment/Plan: Continue supplemental oxygen. Patient not tolerating any weaning (2) Acute exacerbation of chronic obstructive pulmonary disease (COPD) Acute J44.1 - CHRONIC OBSTRUCTIVE PULMONARY DISEASE W (ACUTE) EXACERBATION Comment/Plan: Patient will require steroids nebs and continued oxygen treatment. Continue present plan if her continues to wheeze tomorrow will consider adding Singulair. (3) LLL pneumonia Acute J18.1 - LOBAR PNEUMONIA, UNSPECIFIED ORGANISM Qualifiers: Pneumonia type: due to unspecified organism Qualified Code(s): J18.1 - Lobar pneumonia, unspecified organism Comment/Plan: Continue IV antibiotics with Rocephin and azithromycin. (4) Hypoxemia Acute R09.02 - HYPOXEMIA Comment/Plan: Continuously requiring oxygen treatment (5) Microcytic anemia Acute D50.9 - IRON DEFICIENCY ANEMIA, UNSPECIFIED Comment/Plan: Iron studies show very low iron stores. She has low-normal ferritin and low normal TIBC. Will start iron t.i.d. with vitamin-C to improve absorption. Stool hemoccults were ordered but not yet collected. (6) Tobacco abuse Acute Z72.0 - TOBACCO USE Comment/Plan: Patient continues to be an avid smoker will provide nicotine patch. 11 minutes of smoking cessation discussion was had with the patient. She states she is doing better with a nicotine patch and will probably need at discharge. (7) Hypertension Acute I10 - ESSENTIAL (PRIMARY) HYPERTENSION Qualifiers: Hypertension type: essential hypertension Qualified Code(s): I10 - Essential (primary) hypertension Comment/Plan: Continue home medications. (8) Hypokalemia Resolved E87.6 - HYPOKALEMIA Comment/Plan: Replete as tolerated. - Plan IV antibiotics, IV steroids oxygen supplementation. Disposition Plan: Likely to return home with [facility] as previous. Case Care Discussed with: Patient, Nursing Staff Education/Counseling Given To: Patient Education/Counseling Given Regarding: Diagnosis, Treatment, Prognosis, Follow Up Total Time: 35 minutes Critical Care: No Couseling Time (>50% in counseling/coordination): No
[2016-05-05] MEDS: FERROUS SULFATE 324 MG TAB PO SCH ×2 (11:30→17:44)
[2016-05-05] MEDS: ASCORBIC ACID 500 MG TAB PO SCH ×2 (11:30→17:45)
[2016-05-05] MEDS: TUSSIONEX 5 ML ORAL SYRINGE PO PRN (12:42)
[2016-05-05] MEDS: ACETAMINOPHEN 325 MG/TAB TABLET PO PRN (12:42)
[2016-05-05] MEDS: AZITHROMYCIN 500 MG in D5W 250 ML IV SCH (14:39)
[2016-05-05] MEDS: NICOTINE 21 MG PATCH TOP SCH (14:39)
[2016-05-05] MEDS: CEFTRIAXONE 1 GM in D5W 100 ML IV SCH (15:53)
[2016-05-05] MEDS: ENOXAPARIN 40 MG/0.4 ML PFS SQ SCH ×2 (17:45→17:52)
[2016-05-05] MEDS: HYDROCODONE 10 MG/ACETAMIN 325 MG TAB PO SCH (20:07)
[2016-05-06] MEDS: Albuterol/Ipratropium Neb 3 ML NEB NEB SCH ×4 (01:59→19:10)
[2016-05-06] MEDS: METHYLPREDNISOLONE 125 MG/2 ML VIAL IV SCH ×4 (05:35→23:53)
[2016-05-06] MEDS: SODIUM CHLORIDE 0.9% 3 ML FLUSH FLUSH SCH ×2 (05:35→17:39)
[2016-05-06] MEDS: PANTOPRAZOLE 40 MG TAB PO SCH (05:35)
[2016-05-06] MEDS: MetFORMIN 500 MG IMMED RELEASE TAB PO SCH (05:36)
[2016-05-06] MEDS: REGULAR INSULIN 100 UNITS/ML - 3 ML VIAL SQ SCH ×4 (05:37→20:38)
[2016-05-06] MEDS: ALBUTEROL 0.083% 3 ML NEB NEB PRN ×3 (05:40→22:50)
[2016-05-06] MEDS: BUDESONIDE 0.5 MG NEB NEB SCH ×2 (07:33→19:10)
[2016-05-06] MEDS: ASCORBIC ACID 500 MG TAB PO SCH ×3 (08:01→17:41)
[2016-05-06] MEDS: FERROUS SULFATE 324 MG TAB PO SCH ×3 (08:01→17:40)
[2016-05-06] MEDS: HYDROCODONE 5 MG/ACETAMIN 325 MG TAB PO SCH (08:01)
[2016-05-06] MEDS: BuPROPion 150 MG SR TAB PO SCH (08:02)
[2016-05-06] MEDS: FLUOXETINE 20 MG CAP PO SCH (08:03)
[2016-05-06] MEDS: HydrOXYzine PAMOATE 25 MG/CAP CAP PO SCH ×4 (08:03→20:37)
[2016-05-06] MEDS: MELOXICAM 7.5 MG TAB PO SCH (08:03)
[2016-05-06] MEDS: SIMVASTATIN 20 MG TAB PO SCH (08:03)
[2016-05-06] MEDS: AMLODIPINE 5 MG TAB PO SCH (08:09)
[2016-05-06 10:46] LABS: MPV 8.5 fL (7.4-10.4)
[2016-05-06 11:44] VITALS: TEMP 98.3
[2016-05-06] MEDS ORDERED: Pharmacy Review for Metformin - IV Contrast Given SCH (12:00)
--- NOTE | 2016-05-06 13:16 | DIRPT ---
CLINICAL DATA: Chest pain and shortness of breath. Hypoxemia. Acute respiratory failure. Bacterial pneumonia. EXAM: CT ANGIOGRAPHY CHEST WITH CONTRAST TECHNIQUE: Multidetector CT imaging of the chest was performed using the standard protocol during bolus administration of intravenous contrast. Multiplanar CT image reconstructions and MIPs were obtained to evaluate the vascular anatomy. CONTRAST: 80 cc Isovue 370 IV. COMPARISON: 05/04/2016 chest radiograph. 02/22/[address] FINDINGS: Mediastinum/Nodes: The study is significantly limited by motion artifact, which precludes diagnostic evaluation of the segmental and subsegmental pulmonary arteries. There are no filling defects in the central or lobar pulmonary artery branches to suggest acute pulmonary embolism. Great vessels are normal in course and caliber. Normal heart size. No significant pericardial fluid/thickening. Coronary atherosclerosis. Normal visualized thyroid. Normal esophagus. No pathologically enlarged axillary, mediastinal or hilar lymph nodes. Lungs/Pleura: No pneumothorax. No pleural effusion. There is patchy consolidation and ground-glass opacity in the apical right upper lobe and throughout the peripheral left upper lobe. There is platelike atelectasis in the posterior lingula. There are patchy tree-in-bud opacities and ground-glass centrilobular nodules in the left greater than right lower lobes. No lung masses. Upper abdomen: Subcentimeter hypodense liver lesion in the caudate lobe is too small to characterize. Musculoskeletal: No aggressive appearing focal osseous lesions. Review of the MIP images confirms the above findings. IMPRESSION: 1. Limited motion degraded study. No central pulmonary embolism. No evidence of pulmonary hypertension or right heart failure. 2. Patchy consolidation and ground-glass opacity in the bilateral upper lobes, most suggestive of a multifocal pneumonia. Patchy tree-in-bud opacities and ground-glass centrilobular nodules in the left greater than right lower lobes are most in keeping with infectious bronchiolitis. 3. Coronary atherosclerosis. Electronically Signed By: Tino Avila M.D. On: 05/06/2016 13:13
[2016-05-06] MEDS: NICOTINE 21 MG PATCH TOP SCH (14:50)
[2016-05-06] MEDS: AZITHROMYCIN 500 MG in D5W 250 ML IV SCH (14:51)
[2016-05-06] MEDS: CEFTRIAXONE 1 GM in D5W 100 ML IV SCH (16:26)
[2016-05-06] MEDS: ENOXAPARIN 40 MG/0.4 ML PFS SQ SCH ×2 (17:41→17:48)
--- NOTE | 2016-05-06 17:46 | GENMEDPROG ---
Currently: Reports: Cough, Wheezing, SOB, Tobacco Use/Hx. Denies: Nausea and Vomiting, Abdominal Pain DVT Prophylaxis: Yes - Physical Examination Vital Signs and I&O: Last Vital Signs Temp 98.0 F 05/06/16 17:35 Pulse 99 05/06/16 17:35 Resp 20 05/06/16 17:35 BP 144/88 05/06/16 17:35 Pulse Ox 98 05/06/16 17:35 Oxygen Pulse Oxygen Saturation 98 O2 Device Nasal Cannula Oxygen Flow Rate 1.5 Fraction of Inspired Oxygen ( FIO2) Intake & Output 05/03/16 05/04/16 05/05/16 05/06/16 23:59 23:59 23:59 23:59 Intake Total 661 3320 689 Output Total 550 2300 Balance 111 1020 689 Patient's weight 85.389 kg 85.729 kg General: Alert, Oriented x3, No acute distress, Well appearing, Well nourished HEENT: Normal (Normocephalic, atraumatic;EOMI.Sclera white, Nares patent, without discharge or bleeding. No oropharyngeal lesions or erythema. Mucous membranes are dry.) Lymphatics: Normal (No cervical lymphadenopathy. No supraclavicular lymphadenopathy.) Respiratory: Diminished, Rhonchi, Wheezes Cardiovascular: Regular rate and rhythm (No bradycardia or tachycardia), Normal S1, No Gallops,Rubs/Murmurs, Normal S2, Good Pedal Pulses (DP pulses 2+ bilaterally) GI: Normal bowel sounds (normal active sounds), Soft (non-distended), Non tender , No hepatospenomegaly, No masses Extremities/Musculoskeletal: Normal pulses (DP pulses 2+ bilaterally) Skin: Warm,Dry and Intact, No rashes, No significant lesion Neurological: Strength at 5/5 X4 ext (Motor 5/5 throughout.), Normal tone, Cranial nerves 3-12 NL ( 2-12 grossly intact.) Lab/DI/Studies Reviewed: Abnormal Lab Results 05/05/16 05/06/16 05/06/16 20:01 05:34 10:29 WBC 17.8 H RBC 4.06 L Hgb 9.4 L Hct 29.6 L MCV 73 L MCH 23.0 L MCHC 31.6 L RDW 19.4 H POC Capillary Glucose 163 H 149 H 05/06/16 05/06/16 11:31 17:39 WBC RBC Hgb Hct MCV MCH MCHC RDW POC Capillary Glucose 141 H 172 H EXAM: CT ANGIOGRAPHY CHEST WITH CONTRAST TECHNIQUE: Multidetector CT imaging of the chest was performed using the standard protocol during bolus administration of intravenous contrast. Multiplanar CT image reconstructions and MIPs were obtained to evaluate the vascular anatomy. CONTRAST: 80 cc Isovue 370 IV. COMPARISON: 05/04/2016 chest radiograph. 02/22/[address] FINDINGS: Mediastinum/Nodes: The study is significantly limited by motion artifact, which precludes diagnostic evaluation of the segmental and subsegmental pulmonary arteries. There are no filling defects in the central or lobar pulmonary artery branches to suggest acute pulmonary embolism. Great vessels are normal in course and caliber. Normal heart size. No significant pericardial fluid/thickening. Coronary atherosclerosis. Normal visualized thyroid. Normal esophagus. No pathologically enlarged axillary, mediastinal or hilar lymph nodes. Lungs/Pleura: No pneumothorax. No pleural effusion. There is patchy consolidation and ground-glass opacity in the apical right upper lobe and throughout the peripheral left upper lobe. There is platelike atelectasis in the posterior lingula. There are patchy tree-in-bud opacities and ground-glass centrilobular nodules in the left greater than right lower lobes. No lung masses. Upper abdomen: Subcentimeter hypodense liver lesion in the caudate lobe is too small to characterize. Musculoskeletal: No aggressive appearing focal osseous lesions. Review of the MIP images confirms the above findings. IMPRESSION: 1. Limited motion degraded study. No central pulmonary embolism. No evidence of pulmonary hypertension or right heart failure. 2. Patchy consolidation and ground-glass opacity in the bilateral upper lobes, most suggestive of a multifocal pneumonia. Patchy tree-in-bud opacities and ground-glass centrilobular nodules in the left greater than right lower lobes are most in keeping with infectious bronchiolitis. 3. Coronary atherosclerosis. Electronically Signed By: Tino Avila M.D. On: 05/06/2016 13:13 - Assessment (1) Acute respiratory failure with hypoxia Acute J96.01 - ACUTE RESPIRATORY FAILURE WITH HYPOXIA Comment/Plan: Continue supplemental oxygen. Patient not tolerating any weaning (2) Acute exacerbation of chronic obstructive pulmonary disease (COPD) Acute J44.1 - CHRONIC OBSTRUCTIVE PULMONARY DISEASE W (ACUTE) EXACERBATION Comment/Plan: Patient will require steroids nebs and continued oxygen treatment. Continue present plan if her continues to wheeze tomorrow will consider adding Singulair. (3) LLL pneumonia Acute J18.1 - LOBAR PNEUMONIA, UNSPECIFIED ORGANISM Qualifiers: Pneumonia type: due to unspecified organism Qualified Code(s): J18.1 - Lobar pneumonia, unspecified organism Comment/Plan: Continue IV antibiotics with Rocephin and azithromycin. (4) Hypoxemia Acute R09.02 - HYPOXEMIA Comment/Plan: Continuously requiring oxygen treatment (5) Microcytic anemia Acute D50.9 - IRON DEFICIENCY ANEMIA, UNSPECIFIED Comment/Plan: Iron studies show very low iron stores. She has low-normal ferritin and low normal TIBC. Will start iron t.i.d. with vitamin-C to improve absorption. Stool hemoccults were ordered but not yet collected. (6) Tobacco abuse Acute Z72.0 - TOBACCO USE Comment/Plan: Patient continues to be an avid smoker will provide nicotine patch. 11 minutes of smoking cessation discussion was had with the patient. She states she is doing better with a nicotine patch and will probably need at discharge. (7) Hypertension Acute I10 - ESSENTIAL (PRIMARY) HYPERTENSION Qualifiers: Hypertension type: essential hypertension Qualified Code(s): I10 - Essential (primary) hypertension Comment/Plan: Continue home medications. (8) Hypokalemia Resolved E87.6 - HYPOKALEMIA Comment/Plan: Replete as tolerated.
[2016-05-06] MEDS: HYDROCODONE 10 MG/ACETAMIN 325 MG TAB PO SCH (20:37)
[2016-05-07] MEDS ORDERED: CHAPSTICK LIP BALM ONE (01:02)
[2016-05-07] MEDS: Albuterol/Ipratropium Neb 3 ML NEB NEB SCH ×4 (01:27→20:55)
[2016-05-07] MEDS: SODIUM CHLORIDE 0.9% 3 ML FLUSH FLUSH SCH ×2 (05:20→17:20)
[2016-05-07] MEDS: PANTOPRAZOLE 40 MG TAB PO SCH (05:20)
[2016-05-07] MEDS: METHYLPREDNISOLONE 125 MG/2 ML VIAL IV SCH ×4 (05:20→23:38)
[2016-05-07] MEDS: ACETAMINOPHEN 325 MG/TAB TABLET PO PRN ×3 (05:20→21:21)
[2016-05-07] MEDS: REGULAR INSULIN 100 UNITS/ML - 3 ML VIAL SQ SCH ×4 (05:20→21:21)
[2016-05-07] MEDS: IBUPROFEN 400 MG TAB PO PRN (06:17)
[2016-05-07] MEDS: BUDESONIDE 0.5 MG NEB NEB SCH ×2 (07:28→20:59)
[2016-05-07] MEDS: HydrOXYzine PAMOATE 25 MG/CAP CAP PO SCH ×4 (08:26→21:36)
[2016-05-07] MEDS: HYDROCODONE 5 MG/ACETAMIN 325 MG TAB PO SCH (08:26)
[2016-05-07] MEDS: MELOXICAM 7.5 MG TAB PO SCH (08:26)
[2016-05-07] MEDS: FERROUS SULFATE 324 MG TAB PO SCH ×3 (08:26→17:18)
[2016-05-07] MEDS: FLUOXETINE 20 MG CAP PO SCH (08:27)
[2016-05-07] MEDS: AMLODIPINE 5 MG TAB PO SCH (08:27)
[2016-05-07] MEDS: ASCORBIC ACID 500 MG TAB PO SCH ×3 (08:27→17:18)
[2016-05-07] MEDS: BuPROPion 150 MG SR TAB PO SCH ×2 (08:27→21:36)
[2016-05-07] MEDS: SIMVASTATIN 20 MG TAB PO SCH (08:27)
[2016-05-07] MEDS: NICOTINE 21 MG PATCH TOP SCH (14:31)
[2016-05-07] MEDS: AZITHROMYCIN 500 MG in D5W 250 ML IV SCH (14:31)
[2016-05-07] MEDS: CEFTRIAXONE 1 GM in D5W 100 ML IV SCH (16:03)
[2016-05-07] MEDS: ENOXAPARIN 40 MG/0.4 ML PFS SQ SCH (17:19)
--- NOTE | 2016-05-07 18:16 | GENMEDPROG ---
Currently: Reports: Cough, Wheezing, SOB, Tobacco Use/Hx. Denies: Nausea and Vomiting, Abdominal Pain DVT Prophylaxis: Yes - Physical Examination Vital Signs and I&O: Last Vital Signs Temp 98.0 F 05/07/16 09:35 Pulse 79 05/07/16 14:00 Resp 20 05/07/16 14:00 BP 132/83 05/07/16 14:00 Pulse Ox 97 05/07/16 14:00 Oxygen Pulse Oxygen Saturation 97 O2 Device Nasal Cannula Oxygen Flow Rate 2 Fraction of Inspired Oxygen ( FIO2) Intake & Output 05/04/16 05/05/16 05/06/16 05/07/16 23:59 23:59 23:59 23:59 Intake Total 661 3320 1286 789 Output Total 550 2300 2350 Balance 111 1020 1286 -1561 Patient's weight 188 lb 4 oz 189 lb 188 lb 1 oz General: Alert, Oriented x3, No acute distress, Well appearing, Well nourished HEENT: Normal (Normocephalic, atraumatic;EOMI.Sclera white, Nares patent, without discharge or bleeding. No oropharyngeal lesions or erythema. Mucous membranes are dry.) Neck: Non-tender, Full range of motion, Normal Trachea alignment, Normal inspection (No cervical lymphadenopathy. No supraclavicular lymphadenopathy.), No Masses palpable, Supple Lymphatics: Normal (No cervical lymphadenopathy. No supraclavicular lymphadenopathy.) Respiratory: Diminished, Rhonchi, Wheezes Cardiovascular: Regular rate and rhythm (No bradycardia or tachycardia), Normal S1, No Gallops,Rubs/Murmurs, Normal S2, Good Pedal Pulses (DP pulses 2+ bilaterally) GI: Normal bowel sounds (normal active sounds), Soft (non-distended), Non tender , No hepatospenomegaly, No masses Extremities/Musculoskeletal: Normal pulses (DP pulses 2+ bilaterally) Skin: Warm,Dry and Intact, No rashes, No significant lesion Neurological: Strength at 5/5 X4 ext (Motor 5/5 throughout.), Normal tone, Cranial nerves 3-12 NL ( 2-12 grossly intact.) Psych/Mental Status: Appropriate, Normal Affect - Assessment (1) Acute respiratory failure with hypoxia Acute J96.01 - ACUTE RESPIRATORY FAILURE WITH HYPOXIA Comment/Plan: Continue supplemental oxygen. Patient not tolerating any weaning (2) Acute exacerbation of chronic obstructive pulmonary disease (COPD) Acute J44.1 - CHRONIC OBSTRUCTIVE PULMONARY DISEASE W (ACUTE) EXACERBATION Comment/Plan: Patient will require steroids nebs and continued oxygen treatment. Continue present plan if her continues to wheeze tomorrow will consider adding Singulair. (3) LLL pneumonia Acute J18.1 - LOBAR PNEUMONIA, UNSPECIFIED ORGANISM Qualifiers: Pneumonia type: due to unspecified organism Qualified Code(s): J18.1 - Lobar pneumonia, unspecified organism Comment/Plan: Continue IV antibiotics with Rocephin and azithromycin. (4) Hypertension Acute I10 - ESSENTIAL (PRIMARY) HYPERTENSION Qualifiers: Hypertension type: essential hypertension Qualified Code(s): I10 - Essential (primary) hypertension Comment/Plan: Continue home medications. (5) Hypokalemia Resolved E87.6 - HYPOKALEMIA Comment/Plan: Replete as tolerated. (6) Hypoxemia Acute R09.02 - HYPOXEMIA Comment/Plan: Continuously requiring oxygen treatment (7) Microcytic anemia Acute D50.9 - IRON DEFICIENCY ANEMIA, UNSPECIFIED Comment/Plan: Iron studies show very low iron stores. She has low-normal ferritin and low normal TIBC. Will start iron t.i.d. with vitamin-C to improve absorption. Stool hemoccults were ordered but not yet collected. (8) Tobacco abuse Acute Z72.0 - TOBACCO USE Comment/Plan: Patient continues to be an avid smoker will provide nicotine patch. 11 minutes of smoking cessation discussion was had with the patient. She states she is doing better with a nicotine patch and will probably need at discharge. Case Care Discussed with: Patient, Family, Nursing Staff, Resource Management, Equipment Inspector Total Time: 40 Critical Care: No Code: [id number] (12+)
[2016-05-07] MEDS: HYDROCODONE 10 MG/ACETAMIN 325 MG TAB PO SCH (21:21)
[2016-05-08] MEDS: Albuterol/Ipratropium Neb 3 ML NEB NEB SCH ×4 (02:37→19:11)
[2016-05-08 06:10] VITALS: BMI 33.7
[2016-05-08] MEDS: METHYLPREDNISOLONE 125 MG/2 ML VIAL IV SCH ×2 (06:47→11:35)
[2016-05-08] MEDS: PANTOPRAZOLE 40 MG TAB PO SCH (06:47)
[2016-05-08] MEDS: SODIUM CHLORIDE 0.9% 3 ML FLUSH FLUSH SCH ×2 (06:47→16:59)
[2016-05-08] MEDS: REGULAR INSULIN 100 UNITS/ML - 3 ML VIAL SQ SCH ×4 (06:48→22:54)
[2016-05-08] MEDS: BUDESONIDE 0.5 MG NEB NEB SCH ×2 (07:20→19:13)
[2016-05-08] MEDS: ASCORBIC ACID 500 MG TAB PO SCH ×3 (08:26→16:58)
[2016-05-08] MEDS: FLUOXETINE 20 MG CAP PO SCH (08:27)
[2016-05-08] MEDS: FERROUS SULFATE 324 MG TAB PO SCH ×3 (08:27→16:57)
[2016-05-08] MEDS: HydrOXYzine PAMOATE 25 MG/CAP CAP PO SCH ×4 (08:27→20:33)
[2016-05-08] MEDS: HYDROCODONE 5 MG/ACETAMIN 325 MG TAB PO SCH (08:27)
[2016-05-08] MEDS: AMLODIPINE 5 MG TAB PO SCH (08:27)
[2016-05-08] MEDS: BuPROPion 150 MG SR TAB PO SCH ×2 (08:27→20:34)
[2016-05-08] MEDS: MELOXICAM 7.5 MG TAB PO SCH (08:27)
[2016-05-08] MEDS: SIMVASTATIN 20 MG TAB PO SCH (08:27)
[2016-05-08] MEDS: NICOTINE 21 MG PATCH TOP SCH (11:37)
[2016-05-08] MEDS: AZITHROMYCIN 500 MG in D5W 250 ML IV SCH (13:30)
[2016-05-08] MEDS: CEFTRIAXONE 1 GM in D5W 100 ML IV SCH (15:49)
[2016-05-08] MEDS: ENOXAPARIN 40 MG/0.4 ML PFS SQ SCH (16:58)
[2016-05-08] MEDS: ACETAMINOPHEN 325 MG/TAB TABLET PO PRN (18:22)
[2016-05-08] MEDS: IBUPROFEN 400 MG TAB PO PRN (20:31)
[2016-05-08] MEDS: HYDROCODONE 10 MG/ACETAMIN 325 MG TAB PO SCH (20:32)
--- NOTE | 2016-05-08 20:37 | GENMEDPROG ---
Notes Reviewed: Yes Events from last night noted and discussed with Clinical Staff Current Medication List: Reviewed Currently: Reports: Cough, Wheezing, SOB, Tobacco Use/Hx. Denies: Nausea and Vomiting, Abdominal Pain DVT Prophylaxis: Yes - Physical Examination Vital Signs and I&O: Last Vital Signs Temp 99 F 05/08/16 17:41 Pulse 81 05/08/16 19:13 Resp 14 05/08/16 19:13 BP 154/90 05/08/16 17:41 Pulse Ox 95 05/08/16 19:13 Oxygen Pulse Oxygen Saturation 95 O2 Device Room Air Oxygen Flow Rate 1.5 Fraction of Inspired Oxygen ( FIO2) Intake & Output 05/05/16 05/06/16 05/07/16 05/08/16 23:59 23:59 23:59 23:59 Intake Total 3320 1286 1349 1250 Output Total 2300 2950 400 Balance 1020 1286 -1601 850 Patient's weight 188 lb 4 oz 189 lb 188 lb 1 oz 190 lb 3 oz General: Alert, Oriented x3, No acute distress, Well appearing, Well nourished HEENT: Normal (Normocephalic, atraumatic;EOMI.Sclera white, Nares patent, without discharge or bleeding. No oropharyngeal lesions or erythema. Mucous membranes are dry.) Neck: Non-tender, Full range of motion, Normal Trachea alignment, Normal inspection (No cervical lymphadenopathy. No supraclavicular lymphadenopathy.), No Masses palpable, Supple Lymphatics: Normal (No cervical lymphadenopathy. No supraclavicular lymphadenopathy.) Respiratory: Diminished, Rhonchi, Wheezes Cardiovascular: Regular rate and rhythm (No bradycardia or tachycardia), Normal S1, No Gallops,Rubs/Murmurs, Normal S2, Good Pedal Pulses (DP pulses 2+ bilaterally) GI: Normal bowel sounds (normal active sounds), Soft (non-distended), Non tender , No hepatospenomegaly, No masses Extremities/Musculoskeletal: Normal pulses (DP pulses 2+ bilaterally) Skin: Warm,Dry and Intact, No rashes, No significant lesion Neurological: Strength at 5/5 X4 ext (Motor 5/5 throughout.), Normal tone, Cranial nerves 3-12 NL ( 2-12 grossly intact.) Psych/Mental Status: Appropriate, Normal Affect Lab/DI/Studies Reviewed: Laboratory Results - last 24 hr 05/08/16 05/08/16 05/08/16 05:53 10:47 15:57 POC Capillary Glucose 125 H 162 H 167 H - Assessment (1) Acute respiratory failure with hypoxia Acute J96.01 - ACUTE RESPIRATORY FAILURE WITH HYPOXIA Comment/Plan: Continue supplemental oxygen. Patient not tolerating any weaning (2) Acute exacerbation of chronic obstructive pulmonary disease (COPD) Acute J44.1 - CHRONIC OBSTRUCTIVE PULMONARY DISEASE W (ACUTE) EXACERBATION Comment/Plan: Patient will require steroids nebs and continued oxygen treatment. Continue present plan if her continues to wheeze tomorrow will consider adding Singulair. (3) LLL pneumonia Acute J18.1 - LOBAR PNEUMONIA, UNSPECIFIED ORGANISM Qualifiers: Pneumonia type: due to unspecified organism Qualified Code(s): J18.1 - Lobar pneumonia, unspecified organism Comment/Plan: Continue IV antibiotics with Rocephin and azithromycin. (4) Hypertension Acute I10 - ESSENTIAL (PRIMARY) HYPERTENSION Qualifiers: Hypertension type: essential hypertension Qualified Code(s): I10 - Essential (primary) hypertension Comment/Plan: Continue home medications. (5) Hypokalemia Resolved E87.6 - HYPOKALEMIA Comment/Plan: Replete as tolerated. (6) Hypoxemia Acute R09.02 - HYPOXEMIA Comment/Plan: Continuously requiring oxygen treatment (7) Microcytic anemia Acute D50.9 - IRON DEFICIENCY ANEMIA, UNSPECIFIED Comment/Plan: Iron studies show very low iron stores. She has low-normal ferritin and low normal TIBC. Will start iron t.i.d. with vitamin-C to improve absorption. Stool hemoccults were ordered but not yet collected. (8) Tobacco abuse Acute Z72.0 - TOBACCO USE Comment/Plan: Patient continues to be an avid smoker will provide nicotine patch. 11 minutes of smoking cessation discussion was had with the patient. She states she is doing better with a nicotine patch and will probably need at discharge. Total Time: 40 Critical Care: No Code: 03646 (12+)
[2016-05-09] MEDS: TUSSIONEX 5 ML ORAL SYRINGE PO PRN (00:08)
[2016-05-09] MEDS: METHYLPREDNISOLONE 125 MG/2 ML VIAL IV SCH ×2 (00:09→11:42)
[2016-05-09] MEDS: Albuterol/Ipratropium Neb 3 ML NEB NEB SCH ×3 (03:17→13:20)
[2016-05-09] MEDS: SODIUM CHLORIDE 0.9% 3 ML FLUSH FLUSH SCH (05:58)
[2016-05-09] MEDS: MetFORMIN 500 MG IMMED RELEASE TAB PO SCH (05:59)
[2016-05-09] MEDS: REGULAR INSULIN 100 UNITS/ML - 3 ML VIAL SQ SCH ×2 (05:59→11:35)
[2016-05-09] MEDS: PANTOPRAZOLE 40 MG TAB PO SCH (05:59)
[2016-05-09] MEDS: BUDESONIDE 0.5 MG NEB NEB SCH (07:33)
[2016-05-09 08:09] LABS: MPV 8.8 fL (7.4-10.4)
[2016-05-09 08:13] LABS: BLOOD UREA NITROGEN 16 MG/DL (7-17); CALCIUM 8.2 MG/DL (8.4-10.2); CALCULATED OSMOLALITY 267 MOs/Kg (270-290); CHLORIDE 95 mEq/L (98-107); GLUCOSE 104 MG/DL (70-99); SODIUM LEVEL 138 mEq/L (137-146)
[2016-05-09] MEDS: HYDROCODONE 5 MG/ACETAMIN 325 MG TAB PO SCH (08:13)
[2016-05-09] MEDS: SIMVASTATIN 20 MG TAB PO SCH (08:13)
[2016-05-09] MEDS: AMLODIPINE 5 MG TAB PO SCH (08:13)
[2016-05-09] MEDS: ASCORBIC ACID 500 MG TAB PO SCH ×2 (08:13→11:43)
[2016-05-09] MEDS: BuPROPion 150 MG SR TAB PO SCH (08:14)
[2016-05-09] MEDS: FLUOXETINE 20 MG CAP PO SCH (08:14)
[2016-05-09] MEDS: MELOXICAM 7.5 MG TAB PO SCH (08:14)
[2016-05-09] MEDS: HydrOXYzine PAMOATE 25 MG/CAP CAP PO SCH ×3 (08:15→14:43)
[2016-05-09] MEDS: FERROUS SULFATE 324 MG TAB PO SCH ×2 (08:15→11:42)
--- NOTE | 2016-05-09 09:34 | DIRPT ---
CLINICAL DATA: Respiratory failure. Difficulty breathing. EXAM: PORTABLE CHEST 1 VIEW COMPARISON: CT 05/06/2016 and plain film 05/04/2016 FINDINGS: Midline trachea. Cardiomegaly accentuated by AP portable technique. Atherosclerosis in the transverse aorta. No pleural effusion or pneumothorax. No lobar consolidation. IMPRESSION: No acute cardiopulmonary disease. Cardiomegaly and aortic atherosclerosis. Electronically Signed By: Dave Raymond M.D. On: 05/09/2016 09:32
[2016-05-09] MEDS: IBUPROFEN 400 MG TAB PO PRN (09:39)
[2016-05-09 10:36] LABS: SEG NEUTROPHIL 78 % (45-76)
[2016-05-09 11:04] VITALS: BP 151/81; PULSE 84; TEMP 98.2
--- NOTE | 2016-05-09 12:22 | PCM.DCS92 ---
- Final/Secondary Discharge Diagnosis (1) Acute exacerbation of chronic obstructive pulmonary disease (COPD) Acute J44.1 - CHRONIC OBSTRUCTIVE PULMONARY DISEASE W (ACUTE) EXACERBATION Present on Admission: Yes Comment: Patient being treated with steroids nebs and continued oxygen treatment. Continue present plan if her continues to wheeze tomorrow will consider adding Singulair. (2) Acute respiratory failure with hypoxia Acute J96.01 - ACUTE RESPIRATORY FAILURE WITH HYPOXIA Present on Admission: Yes Comment: Continue supplemental oxygen. Patient not tolerating any weaning (3) LLL pneumonia Acute J18.1 - LOBAR PNEUMONIA, UNSPECIFIED ORGANISM Present on Admission: Yes due to unspecified organism J18.1 - Lobar pneumonia, unspecified organism Comment: Treated with empiric IV antibiotics Rocephin and azithromycin. She completed a course of azithromycin here in the hospital, will continue cephalosporin orally at home. (4) Tobacco abuse Acute Z72.0 - TOBACCO USE Present on Admission: Yes Comment: Patient continues to be an avid smoker will provide nicotine patch. 11 minutes of smoking cessation discussion was had with the patient. She states she is doing better with a nicotine patch and will probably need at discharge. (5) Hypokalemia Resolved E87.6 - HYPOKALEMIA Present on Admission: Yes Comment: Replete as tolerated. Discharge Disposition: Discharge w/ Home Health Discharge Condition: Fair Cognitive Discharge Status: Unimpaired Fuctional Discharge Status: Independent Physician Follow up/Referrals: Marti Rojo PA [Primary Care Provider] - One Week New Prescriptions: Ascorbic Acid [Vitamin C] 250 mg PO TIDWM #90 tablet Benzonatate [Tessalon] 200 mg PO TID PRN #30 capsule PRN Reason: Cough - First Option BuPROPion (BID formulation) [Wellbutrin-Sr] 150 mg PO BID #60 tab.sr.12h Cefdinir [Omnicef] 300 mg PO BID 2 Days Nicotine [Nicoderm] 21 mg TOP Q24H #30 pat Prednisone [Sterapred Ds] 10 mg PO DIR #21 pack Discharge Home Medication List Esomeprazole Mag Trihydrate [Nexium] 40 mg PO DAILY 01/23/13 [History Confirmed 05/04/16 Last Taken 12/01/15 04:55] Amlodipine [Norvasc] 5 mg PO DAILY 05/22/15 [History Confirmed 05/04/16 Last Taken 12/01/15 08:11] Albuterol Sulfate [Proair Hfa] 2 puff INH Q4-6H PRN 11/05/15 [History Confirmed 05/04/16 Last Taken 12/01/15 13:44] Budesonide/Formoterol Fumarate [Symbicort 80-4.5 Mcg Inhaler] 2 puff INH BID [History Confirmed 05/04/16 Last Taken 11/26/15 05:00] Fluoxetine HCl 20 mg PO DAILY 11/25/15 [History Confirmed 05/04/16 Last Taken 08:09] Simvastatin [Zocor] 20 mg PO DAILY 11/25/15 [History Confirmed 05/04/16 Last Taken 12/01/15 08:10] Hydrocodone Bit/Acetaminophen [[facility] 5-325 Tablet] 1 tab PO QAM 05/04/16 [ History Confirmed 05/05/16 Last Taken Unknown] Hydrocodone/Acetaminophen [Hydrocodon-Acetaminophn 10-325] 1 tab PO HS 05/04/16 [History Confirmed 05/04/16 Last Taken 05/03/16 23:00] Hydroxyzine Pamoate [Vistaril] 25 mg PO QID 05/04/16 [History Confirmed Last Taken Unknown] Meloxicam [Mobic] 7.5 mg PO DAILY 05/04/16 [History Confirmed 05/04/16 Last Taken Unknown] Metformin HCl 500 mg PO DAILY 05/04/16 [History Confirmed 05/04/16 Last Taken Unknown] Trazodone HCl [Desyrel] 50 mg PO QHS 05/04/16 [History Confirmed 05/04/16 Last Taken Unknown] Zolpidem Tartrate 5 mg PO HS PRN 05/04/16 [History Confirmed 05/04/16 Last Taken Unknown] Ascorbic Acid [Vitamin C] 250 mg PO TIDWM #90 tablet 05/09/16 [Rx Last Taken Unknown] Benzonatate [Tessalon] 200 mg PO TID PRN #30 capsule 05/09/16 [Rx Last Taken Unknown] BuPROPion (BID formulation) [Wellbutrin-Sr] 150 mg PO BID #60 tab.sr.12h [Rx Last Taken Unknown] Cefdinir [Omnicef] 300 mg PO BID 2 Days 05/09/16 [Rx Last Taken Unknown] Nicotine [Nicoderm] 21 mg TOP Q24H #30 pat 05/09/16 [Rx Last Taken Unknown] Prednisone [Sterapred Ds] 10 mg PO DIR #21 pack 05/09/16 [Rx Last Taken Unknown] O2 Device: Room Air Diet at Discharge: As Tolerated Activity: No Restrictions - DC Summary Notes HPI/Notes: This is a pleasant 61-year-old female with a history of COPD who was admitted to the hospital with pneumonia and COPD. She was treated in the usual fashion with empiric IV antibiotics and IV steroid taper. She was initially treated with supplemental oxygen, this is been weaned off entirely. She is ready for discharge home today with home health services as well as some durable medical equipment such as bedside commode. Please see the hospital problems and discharge problems above for details of the hospital course including diagnostics and treatment. The plan of care including medications, prognosis, follow-up including alarm symptoms for which medical care should be sought were reviewed with the patient and any available family members/caretakers. The patient is agreeable to discharge today, and all questions were answered by me to their satisfaction. Hospital Course Note:: Discharge summary on patient named SIENNA PIERRE admitted to [facility] on 05/04/16 by Mackenzie Stone MD. Date of discharge is []. - Physical Exam Vital Signs: Last Vital Signs Temp 98.2 F 05/09/16 12:11 Pulse 84 05/09/16 12:11 Resp 18 05/09/16 12:11 BP 151/81 05/09/16 12:11 Pulse Ox 95 05/09/16 10:00 Oxygen Pulse Oxygen Saturation 95 O2 Device Room Air Oxygen Flow Rate 1.5 Fraction of Inspired Oxygen ( FIO2) Constitutional: No apparent distress, Alert, Confused Oriented to: Time, Person, Place Exam: Resting comfortably in a chair at the bedside. She is currently on room air. Just went for walk with physical therapy and feels well. - HEENT Head: Normal (normocephalic, atraumatic.), Other (No cervical lymphadenopathy. No supraclavicular lymphadenopathy. Neck: No palpable mass, supple , trachea midline.) Eye: Normal (pupils equal, reactive to light, and round; EOMI, Sclera white) Oropharynx: Normal (Pharynx: Moist without exudate,Gums-no swelling, No oropharyngeal lesions or erythema, Mucous membranes are dry.) Nose: No Symptoms Reported (septum midline, Nares patent, without discharge or bleeding.) - Respiratory/Cardiovascular Respiratory: Diminished Cardiovascular: Normal (RRR , Normal S1, S2. No murmurs, rubs, or gallops. PMI non-displaced. Carotids: no carotid bruits. No bradycardia or tachycardia. DP pulses 2+ bilaterally.) - GI Auscultation: Normal (normal active sounds) Palpation: Normal (Soft,non distended,nontender. No hepatosplenomegaly.) Tenderness: Non tender (No rebound or guarding) Christianson's Sign: Negative - Musculoskeletal Back: Normal (Non-Tender) Extremities: Normal (Normal tone, DP pulses 2+ bilaterally, No cyanosis or edema bilaterally, FROM bilaterally.) - Integumentary Lymphatics: Normal (No cervical lymphadenopathy. No supraclavicular lymphadenopathy.) - Neurologic Cerebellar: Normal (Babinski: toes downgoing bilaterally. Intact Finger to nose. Sensory grossly intact to light touch. Intact rapid alternating movements bilaterally. No pronator drift.) Mood Description: Normal (Fully oriented. Normal and appropriate affect.)
[2016-05-09] MEDS: NICOTINE 21 MG PATCH TOP SCH (13:38)
[2016-05-09] MEDS: CEFTRIAXONE 1 GM in D5W 100 ML IV SCH (14:43)
== END 2016-05-09 15:20 | disposition home health service (06) | DRG 193 ==
LOC: ED 10:31 → MPS3 13:00
PROVIDERS: ADMIT Hospitalist; ATTEND Internal Medicine
PROC: 039C3ZZ Drainage of Left Radial Artery, Percutaneous Approach (ICD-10-PCS; principal; 2016-05-04)
DX: J18.1 Lobar pneumonia, unspecified organism (principal); J96.01 Acute respiratory failure with hypoxia; J44.1 Chronic obstructive pulmonary disease with (acute) exacerbation; I10 Essential (primary) hypertension; D50.9 Iron deficiency anemia, unspecified; F17.210 Nicotine dependence, cigarettes, uncomplicated; J45.909 Unspecified asthma, uncomplicated; E87.6 Hypokalemia; K21.9 Gastro-esophageal reflux disease without esophagitis; Z71.6 Tobacco abuse counseling; Z79.899 Other long term (current) drug therapy; Z79.82 Long term (current) use of aspirin
CPT/HCPCS: 36415; 36600; 71010; 71275; 80048; 80053; 82043; 82728; 82803; 82962; 83036; 83540; 83550; 83605; 83880; 84443; 84484; 85007; 85027; 85610; 85730; 87040; 93005; 94640; 96372; 96375; 98960; 99284; 99406; A9698; G0237; J0456; J0696; J1650; J1956; J2930; J3490; J7040; J7060; J7070; J7620